=== PATIENT | male | born 1945 | race Two or more races ===

== ENCOUNTER → 2018-02-07 | Outpatient (CLI) | payer OTHER | END | disposition home or self-care (01) | LOC: NUCLEAR 07:00 | DX: I20.8 Other forms of angina pectoris (principal); E11.9 Type 2 diabetes mellitus without complications; E78.2 Mixed hyperlipidemia | CPT/HCPCS: 78452; 93017; A9500 ==

== ENCOUNTER 2021-07-14 14:18 | Outpatient (CLI) | payer OTHER | END 2021-07-14 14:27 | disposition home or self-care (01) | LOC: MRI 14:18 | PROVIDERS: ATTEND Physical Medicine & Rehabilitation Hospice and Palliative Medicine | DX: M75.52 Bursitis of left shoulder (principal); M25.512 Pain in left shoulder | CPT/HCPCS: 73221 ==

== ENCOUNTER 2022-08-27 10:32 | Outpatient (CLI) | payer OTHER | END 2022-08-27 10:42 | disposition home or self-care (01) | LOC: MRI 10:32 | PROVIDERS: ATTEND Family Medicine | DX: M54.16 Radiculopathy, lumbar region (principal) | CPT/HCPCS: 72148 ==

== ENCOUNTER 2023-10-28 09:58 | Outpatient (CLI) | payer OTHER | END 2023-10-28 10:01 | disposition home or self-care (01) | LOC: RAD 09:58 | PROVIDERS: ATTEND Student in an Organized Health Care Education/Training Program | DX: Z98.1 Arthrodesis status (principal) ==